=== PATIENT | male | born 1960 | race Caucasian/White ===

== ENCOUNTER 2017-09-21 00:50 | Inpatient (IN) | payer OTHER ==
[~2017-09-21] VITALS: Ht 165.1 cm; Wt 132.4 kg
[~2017-09-21 00:50] MED LIST: AMLODIPINE BESYL5 MG PO; CELEXA40 MG PO; DICLOFENAC SODI75 MG PO; FLEXERIL10 MG PO; HYDROCHLOROTHIA25 MG PO; LISINOPRIL40 MG PO; ROXICET 5-3251 EACH PO
[2017-09-21 01:32] LABS: BASOPHIL (%) 0.4 % (0-1); BASOPHIL COUNT 0.1 K/uL (0-0.1); EOSINOPHIL (%) 0 % (0-5); HEMOGLOBIN 13.9 G/DL (12.5-16.6); IMMATURE GRANULOCYTE (%) 2.1 % (0.0-0.7); LYMPHOCYTE (%) 8.6 % (15-42); LYMPHOCYTE COUNT 1.8 K/uL (1.0-2.8); MCH 31.6 PG (29.0-34.0); MCHC 32.3 G/DL (30.0-36.0); MCV 97.7 FL (86-99); MONOCYTE (%) 3.1 % (3-12); MONOCYTE COUNT 0.6 K/uL (0-0.8); NEUTROPHIL (%) 85.8 % (45-76); NEUTROPHIL COUNT 17.8 K/uL (1.8-6.4); PLATELET COUNT 283 K/uL (156-360); RBC DIS.WIDTH-CV 13.3 % (11.8-14.6); RBC DIS.WIDTH-SD 47.2 % (39-53); WHITE BLOOD COUNT 20.8 K/uL (4.1-10.2)
[2017-09-21 01:39] LABS: INTER. NORMALIZED RATIO 1.1
[2017-09-21 01:41] LABS: PTT 23.5 SEC (25-37)
[2017-09-21 01:42] LABS: ALBUMIN 3.3 g/dL (3.2-4.8); CHLORIDE 107 mEq/L (99-109); SODIUM 135 mEq/L (136-147)
[2017-09-21 01:44] LABS: GLUCOSE 187 mg/dL (70-99); TOTAL PROTEIN 5.4 g/dL (6.4-8.3)
[2017-09-21 01:46] LABS: TOTAL BILIRUBIN 0.6 mg/dL (0.0-1.0)
[2017-09-21 01:48] LABS: ALKALINE PHOSPHATASE 60 IU/L (3-129); CREATININE 1.3 mg/dL (0.6-1.3); GFR ESTIMATE (CALCULATED) > 59 mL/min/ (58.99-99999)
[2017-09-21 01:49] LABS: AST (GOT) 9 IU/L (2-34); UREA NITROGEN (BUN) 53 mg/dL (9-23)
[2017-09-21 01:50] LABS: DIRECT BILIRUBIN 0.3 mg/dL (0.0-0.3)
[2017-09-21 01:51] LABS: ALT (GPT) 13 IU/L (3-49); LIPASE 7 U/L (1.0-51.0)
[2017-09-21 01:53] LABS: POTASSIUM 6.2 mEq/L (3.7-5.4)
[2017-09-21 01:54] LABS: TROP-I INTERPRETATION NEGATIVE; TROPONIN-I 0.03 ng/mL (0.0-0.30)
[2017-09-21 05:08] LABS: CHLORIDE 110 mEq/L (99-109); POTASSIUM 5.9 mEq/L (3.7-5.4); SODIUM 136 mEq/L (136-147)
[2017-09-21 05:14] LABS: CREATININE 1.1 mg/dL (0.6-1.3); GFR ESTIMATE (CALCULATED) > 59 mL/min/ (58.99-99999); UREA NITROGEN (BUN) 43 mg/dL (9-23)
[2017-09-21 05:30] LABS: GLUCOSE 114 mg/dL (70-99)
[2017-09-21 08:12] VITALS: BP 109/67
[2017-09-21 08:46] LABS: HEMATOCRIT 37.7 % (38.0-50.0); HEMOGLOBIN 12.1 G/DL (12.5-16.6); MCV 97.2 FL (86-99)
[2017-09-21 11:56] VITALS: BP 112/55
[2017-09-21] MEDS ORDERED: LIPITOR40 MG PO (13:30)
[2017-09-21 15:05] VITALS: BP 140/75
[2017-09-21 15:52] VITALS: BP 137/72
[2017-09-21 16:42] LABS: APPEARANCE CLEAR ((CLEAR)); BILIRUBIN NEGATIVE; BLOOD NEGATIVE; COLOR COLORLESS ((YELLOW)); GLUCOSE (STRIP) NEGATIVE; KETONES NEGATIVE; LEUKOCYTES NEGATIVE; NITRITE NEGATIVE; PROTEIN (STRIP) NEGATIVE; SPECIFIC GRAVITY 1.009 (1.000-1.030); UCUL ADDED? NO; UROBILINOGEN 0.2 MG/DL (0.2-1.0)
[2017-09-21 18:32] LABS: HEMATOCRIT 33.9 % (38.0-50.0); HEMOGLOBIN 10.9 G/DL (12.5-16.6); MCV 97.4 FL (86-99)
== END 2017-09-21 18:43 | disposition left against medical advice (07) | DRG 872 ==
LOC: EME → EDBD 00:50 → EME 00:50 → EDOF 05:05 → 4EAST 05:05 → EDOF 06:52 → 4EAST 08:29
PROVIDERS: Emergency Medicine; Internal Medicine; Internal Medicine Gastroenterology
PROC: 0DJ08ZZ Inspection of Upper Intestinal Tract, Via Natural or Artificial Opening Endoscopic (ICD-10-PCS; principal; 2017-09-21)
DX: A41.9 Sepsis, unspecified organism (principal); E87.2 Acidosis; K22.70 Barrett's esophagus without dysplasia; E86.0 Dehydration; K44.9 Diaphragmatic hernia without obstruction or gangrene; K92.0 Hematemesis; K92.1 Melena; I10 Essential (primary) hypertension; G89.4 Chronic pain syndrome; R09.02 Hypoxemia; F17.200 Nicotine dependence, unspecified, uncomplicated; E87.5 Hyperkalemia; D50.0 Iron deficiency anemia secondary to blood loss (chronic); Z79.891 Long term (current) use of opiate analgesic; Z87.11 Personal history of peptic ulcer disease; Z82.49 Family history of ischemic heart disease and other diseases of the circulatory system
CPT/HCPCS: 71045; 74177; 80048; 80048 91; 80076; 81003; 83605; 83690; 84132 91; 84484; 85014; 85018; 85025; 85610; 85730; 86850; 86900; 86901; 87040; 93005; 94640; 99281; 99285; C9113; J0696; J2270; J2765; J7030